=== PATIENT | female | born 1995 | race Caucasian/White ===

== ENCOUNTER 2022-06-12 07:44 | Emergency (ER) | payer OTHER, SELFPAY ==
--- NOTE | ~2022-06-12 | XR_ITS ---
EXAMINATION: XR chest 2V DATE: 06/12/2022 08:52 INDICATION: Cough and fever. TECHNIQUE: Frontal and lateral views of the chest were obtained. COMPARISON: None. FINDINGS: There is no pneumonia, pleural effusion, pneumothorax. The heart size is normal. There is m ild chronic anterior wedging of vertebral bodies at thoracolumbar junction. IMPRESSION: 1. No acute cardiopulmonary disease. Reviewed, dictated and finalized at location A. OUNT CLERK
--- NOTE | 2022-06-12 07:47 | ED.URI ---
HPI - URI/Sore Throat General Chief Complaint: Upper Respiratory Infection Stated Complaint: fever, cough, weakness, nausea, dizzy Time Seen by Provider: 06/12/22 07:45 Source: patient and RN notes reviewed Mode of arrival: ambulatory Limitations: no limitations History of Present Illness MD elicited complaint: fever and cough Onset (ago): week(s) (1) Consistency: constant Severity: moderate Description of mucous: clear Able to tolerate fluids by mouth: Yes Exacerbating factors: nothing Relieving factors: nothing Context: sick contacts and other(s) with similar symptoms Associated symptoms: fever (101), chills, myalgias and cough Treatments prior to arrival: acetaminophen and cold medicine Related Data Home Medications Medication Instructions Recorded Confirmed No Home Medications 06/12/22 06/12/22 Allergies Allergy/AdvReac Type Severity Reaction Status Date / Time No Known Allergies Allergy Verified 06/12/22 08:22 [facility] Past Medical History Medical History (Updated 06/12/22 @ 09:54 by Karel Sheridan MD) No active medical problems Surgical History Surgical History (Updated 06/12/22 @ 08:14 by Karel Sheridan MD) Hx of tonsillectomy Social History Social History (Updated 06/12/22 @ 08:14 by Karel Sheridan MD) Smoking packs per day: 1 Smoking cigarettes per day: 20.0 Smoking status: Current every day smoker Tobacco type: cigarettes Alcohol intake: never Substance use: never Exam Const: General: healthy appearing, no acute distress and alert Nutritional Appearance: well nourished and obese morbidly obese Orientation/consciousness: patient oriented x3 Limitations: no limitations Other: female nurse in room during examination. HENMT: Head: normal to inspection Ears: external ears normal Eyes: Conjunctivae: conjunctivae normal Pupils: Equal, round and reactive pupils present EOM: EOMs intact bilaterally Neck: Neck: normal visual inspection Resp: Effort & Inspection: normal respiratory effort Auscultation: clear to auscultation bilaterally Cardio: Rate: regular rate Rhythm: regular rhythm GI: GI Palp: Yes Soft to palpation and No Tenderness to palpation present (GI) Auscultation: normal bowel sounds Back/Spine/Pelvis: Cervical Spine: cervical ROM normal Thoracic/Lumbar Spine: thoraco-lumbar ROM normal Skin: General skin exam: normal color Rashes: no rashes Neuro: General: patient oriented x3, moves all extremities, no focal motor deficits and CN's II-XI intact bilaterally Speech: normal speech Gait exam (Neuro): Normal gait present Extrem: General: normal to inspection and no clubbing, cyanosis or edema Psych: Mental Status: mental status grossly normal Affect: normal affect Attitude: cooperative Course Vital Signs Vital signs: Vital Signs Temperature 36.9 C 06/12/22 07:56 Pulse Rate 104 H 06/12/22 07:56 Respiratory Rate 18 06/12/22 07:56 Blood Pressure 134/83 06/12/22 07:56 Pulse Oximetry 95 06/12/22 07:56 Oxygen Delivery Room Air 06/12/22 07:56 Temperature 36.9 C 06/12/22 07:56 Pulse Rate 104 H 06/12/22 07:56 Respiratory Rate 18 06/12/22 07:56 Blood Pressure 134/83 06/12/22 07:56 Pulse Oximetry 95 06/12/22 07:56 Oxygen Delivery Room Air 06/12/22 07:56 MDM - URI/Sore Throat MDM Narrative Medical decision making narrative: Patient has symptoms of COVID or influenza or other viral upper respiratory infection. Since she had symptoms for 1 week and some mild rhonchi I decided do chest x-ray which showed no evidence of pneumonia. I explained to patient that she is out of the treatment. For using Tamiflu. I recommended [id number] cough cold medication to treat symptoms. Differential Diagnosis Differential diagnosis: Likely upper respiratory infection, viral infection, influenza and other ( COVID or pneumonia.) Lab Data Attestation: I reviewed the patient's lab results. Labs: Lab Results 12
[2022-06-12 07:56] VITALS: BP 134/83; PULSE 104; RESP 18; TEMP 36.9; O2SAT 95
[2022-06-12 09:11] LABS: Influenza A QL RT-PCR Positive (Negative); Influenza B QL RT-PCR Negative (Negative); SARS-CoV-2 RNA PCR Negative (Negative)
[2022-06-12 09:56] VITALS: BP 137/61; PULSE 86; RESP 18; TEMP 36.7; O2SAT 99
== END 2022-06-12 10:12 | disposition home or self-care (01) ==
PROVIDERS: Emergency Provider Emergency Medicine; PCP Registered Nurse
DX: J11.1 Influenza due to unidentified influenza virus with other respiratory manifestations (principal); Z20.822 Contact with and (suspected) exposure to COVID-19
CPT/HCPCS: 71046; 87502; 99283; U0003; U0005

== ENCOUNTER 2022-07-19 10:08 | Outpatient (CLI) | payer OTHER, SELFPAY ==
--- NOTE | ~2022-07-19 | XR_ITS ---
XR thoracic spine 3V DATE: 07/19/2022 10:37 INDICATION: Low back pain, lower thoracic back pain TECHNIQUE: AP, lateral, swimmer views COMPARISON: None FINDINGS: Normal alignment of the thoracic spine. Thoracic pedicles are intact. There is minimal dege nerative spurring in the lower thoracic spine. Minimal anterior wedging of several lower thoracic vertebral bodies is noted, likely chronic. IMPRESSION: Mild degenerative change Reviewed, dictated and finalized at location L. FIELD TESTER IMPRESSION: Mild degenerative change
--- NOTE | ~2022-07-19 | XR_ITS ---
XR lumbar spine 2-3V DATE: 07/19/2022 10:37 INDICATION: Low back pain, lower thoracic back pain for 5 days TECHNIQUE: AP, lateral, coned lateral lumbosacral views COMPARISON: None FINDINGS: Normal alignment of the lumbar vertebrae. No fracture or bone destruction or spondylolisthe sis. Lumbar and lumbosacral interspaces are well preserved. Pedicles are intact. Sacroiliac joints ap pear normal. IMPRESSION: Negative Reviewed, dictated and finalized at location L. MILL OPERATOR IMPRESSION: Negative
== END 2022-07-19 10:09 | disposition home or self-care (01) ==
LOC: CHSIMG 10:12
PROVIDERS: PCP Registered Nurse; Visit Provider Registered Nurse
DX: M54.50 Low back pain, unspecified (principal); M54.6 Pain in thoracic spine
CPT/HCPCS: 72072; 72100

== ENCOUNTER 2022-10-17 16:53 | Outpatient (CLI) | payer OTHER, SELFPAY ==
--- NOTE | ~2022-10-17 | XR_ITS ---
XR wrist RT min 3V 10/17/2022 17:17 INDICATION: Right wrist pain PROCEDURE: 4 views right wrist COMPARISON: No prior studies for comparison. FINDINGS: Fracture, dislocation or subluxation is not identified. The soft tissues appear within norm al limits. No foreign bodies are identified. IMPRESSION: 1: NO ACUTE BONE OR JOINT ABNORMALITY IDENTIFIED. Reviewed, dictated and finalized at location A.
== END 2022-10-17 16:54 | disposition home or self-care (01) ==
LOC: CHSIMG 16:55
PROVIDERS: PCP Registered Nurse; Visit Provider Family Medicine
DX: M25.531 Pain in right wrist (principal)
CPT/HCPCS: 73110

== ENCOUNTER 2023-10-02 04:54 | Emergency (ER) | payer OTHER, SELFPAY ==
--- NOTE | ~2023-10-02 | XR_ITS ---
EXAMINATION: XR chest 1V portable DATE: 10/02/2023 05:50 INDICATION: Upper respiratory infection. TECHNIQUE: A single frontal view of the chest was obtained. COMPARISON: None. FINDINGS: There is no pneumonia, pleural effusion, or pneumothorax. The heart size is normal. IMPRESSION: 1. No acute cardiopulmonary disease. Reviewed, dictated and finalized at location A.
[2023-10-02 04:58] VITALS: BP 130/77; PULSE 94; RESP 20; TEMP 36.8; O2SAT 94
[2023-10-02 05:56] LABS: SARS-CoV-2 RNA PCR Negative (Negative)
[2023-10-02 05:58] LABS: Influenza A QL RT-PCR Negative (Negative); Influenza B QL RT-PCR Negative (Negative); RSV RNA, RT-PCR Negative (Negative)
--- NOTE | 2023-10-02 06:11 | ED.URI ---
HPI - URI/Sore Throat General Chief Complaint: Upper Respiratory Infection Stated Complaint: upper respiratory Source: patient Mode of arrival: ambulatory Limitations: no limitations History of Present Illness HPI Narrative: patient is a 27-year-old female with a cough and chest congestion for 2 days. MD elicited complaint: cough Onset (ago): day(s) (2) Consistency: constant Severity: moderate Pain scale (0-10): 5 Description of mucous: clear Able to tolerate fluids by mouth: Yes Exacerbating factors: nothing Relieving factors: nothing Associated symptoms: other ( Patient has chest she coughs only) Treatments prior to arrival: none Related Data Allergies Allergy/AdvReac Type Severity Reaction Status Date / Time No Known Allergies Allergy Verified 06/12/22 08:22 Review of Systems Review of Systems: All systems reviewed & are unremarkable except as noted in HPI and below Constitutional: Constitutional: Reports no additional constitutional complaints Eyes: Eyes: Reports no additional eye complaints ENT: Reports system reviewed and no additional complaints, except as documented Cardiovascular: Cardiovascular: Reports no additional cardiovascular complaints Respiratory: Respiratory: Reports no additional respiratory complaints Gastrointestinal: Gastrointestinal: Reports no additional gastrointestinal complaints Genitourinary: Genitourinary: Reports no additional female genitourinary complaints Musculoskeletal: Musculoskeletal: Reports no additional musculoskeletal complaints Integumentary/Breasts: Skin/Breast: Reports system reviewed and no additional complaints, except as docu Neurologic: Reports system reviewed and no additional complaints, except as documented Psychiatric: Psychiatric: Reports no additional psychiatric complaints Endocrine: Endocrine: Reports no additional endocrine complaints Hematologic/Lymphatic: Hematologic/Lymphatic: Reports no additional hematologic/lymphatic complaints Allergic/Immunologic: Allergic/Immunologic: Reports no additional allergic/immunologic complaints [facility] Past Medical History Medical History No active medical problems Surgical History Surgical History Hx of tonsillectomy Social History Social History Smoking packs per day: 1 Smoking cigarettes per day: 20.0 Smoking status: Current every day smoker Tobacco type: cigarettes Alcohol intake: never Substance use: never Exam Const: General: healthy appearing Nutritional Appearance: well nourished Orientation/consciousness: patient oriented x3 HENMT: Head: normal to inspection Ears: external ears normal Face/Nose/Sinus: Normal external nose present Eyes: Conjunctivae: conjunctivae normal Pupils: Equal, round and reactive pupils present EOM: EOMs intact bilaterally Neck: Neck: normal visual inspection Chest: Chest palpation & inspection: normal inspection of the chest Resp: Effort & Inspection: normal respiratory effort and not labored Auscultation: clear to auscultation bilaterally, no crackles and rhonchi lower bilaterally Cardio: Rate: regular rate Rhythm: regular rhythm Heart sounds: no murmurs GI: Inspection: non-distended GI Palp: Yes Soft to palpation and No Tenderness to palpation present (GI) Auscultation: normal bowel sounds : General: Yes bladder normal to palpation Back/Spine/Pelvis: Back: no CVA tenderness Skin: General skin exam: normal color Rashes: no rashes Wounds: no wounds Neuro: General: patient oriented x3 Cranial nerves: Yes Nystagmus not present Speech: normal speech Extrem: General: normal to inspection Psych: Mental Status: mental status grossly normal Affect: normal affect Attitude: cooperative Course Vital Signs Vital signs: Vital Signs Oxygen Delivery Room Air 04
== END 2023-10-02 06:25 | disposition home or self-care (01) ==
PROVIDERS: Emergency Provider Emergency Medicine; PCP Physician Assistant
DX: J40 Bronchitis, not specified as acute or chronic (principal); F17.210 Nicotine dependence, cigarettes, uncomplicated; Z20.822 Contact with and (suspected) exposure to COVID-19
CPT/HCPCS: 71045; 87637; 99283

== ENCOUNTER 2023-12-19 20:34 | Emergency (ER) | payer OTHER, SELFPAY ==
[2023-12-19 20:34] VITALS: BP 148/92; PULSE 93; RESP 18; TEMP 36.8; O2SAT 98
--- NOTE | 2023-12-19 20:52 | ED.GENADULT ---
HPI - General Adult General Chief complaint: Dental/Oral Stated complaint: R Ear Pain Time Seen by Provider: 12/19/23 20:46 History of Present Illness HPI narrative: the patient is a 28-year-old woman with sudden onset of right facial pain yesterday. She so a provider today, was diagnosed with dental caries and was treated with amoxicillin prescription. She has tried Aleve ibuprofen Tylenol and naproxen for pain control but still has significant pain in the right aspect of her face at her teeth radiating to the right ear. No drainage from the right ear. No hearing loss. No sick contacts. No fevers or chills. She does have the Nexplanon implant contraceptive. Last menstrual period unknown. No other complaints. Related Data Allergies Allergy/AdvReac Type Severity Reaction Status Date / Time No Known Allergies Allergy Verified 12/19/23 20:50 Review of Systems Review of Systems: All systems reviewed & are unremarkable except as noted in HPI and below Constitutional: Constitutional: Denies chills, Denies excessive sweating, Denies fatigue, Denies fever(s), Denies headache(s) and Denies weakness Eyes: Eyes: Denies change in vision and Denies photophobia ENT: Denies dysphagia, Denies dizziness, Denies headache(s), Denies lip swelling, Denies nasal congestion, Denies sore throat and Denies tongue swelling Comments: Positive for right facial pain likely dental related Cardiovascular: Cardiovascular: Denies chest pain, Denies syncope, Denies rapid heart rate and Denies dyspnea Respiratory: Respiratory: Denies cough, Denies dyspnea and Denies wheezing Gastrointestinal: Gastrointestinal: Denies abdominal pain, Denies constipation, Denies dysphagia, Denies diarrhea, Denies nausea and Denies vomiting Genitourinary: Genitourinary: Denies hematuria, Denies urinary frequency, Denies dysuria and Denies urinary urgency Musculoskeletal: Musculoskeletal: Denies back pain, Denies myalgias, Denies arthralgias, Denies joint swelling and Denies numbness Integumentary/Breasts: Skin/Breast: Denies pruritus, Denies erythema and Denies rash Neurologic: Denies confusion, Denies dizziness, Denies syncope, Denies headache(s), Denies focal weakness, Denies numbness and Denies weakness Psychiatric: Psychiatric: Denies anxiety and Denies confusion Endocrine: Endocrine: Denies excessive sweating and Denies fatigue Hematologic/Lymphatic: Hematologic/Lymphatic: Denies easy bleeding and Denies easy bruising Allergic/Immunologic: Allergic/Immunologic: Denies lip swelling, Denies tongue swelling and Denies wheezing PMFSH Past Medical History Medical History No active medical problems Surgical History Surgical History Hx of tonsillectomy Social History Social History Smoking packs per day: 1 Smoking cigarettes per day: 20.0 Smoking status: Current every day smoker Tobacco type: cigarettes Alcohol intake: never Substance use: never Exam Const: General: healthy appearing, no acute distress, alert and well nourished Nutritional Appearance: well nourished Orientation/consciousness: patient oriented x3 Limitations: no limitations Other: obese HENMT: Head: normal to inspection Ears: external ears normal, TM's normal bilaterally and EAC's normal Face/Nose/Sinus: normal facial exam Face and sinus: normal facial exam Mouth: Yes Normal oral and palatal mucosa present, Yes lip normal and Yes moist mucous membranes Teeth and gingiva: abnormal tooth and associated gingiva ( significant dental caries noted; tenderness in R lower posterior molar) Throat: posterior oropharynx normal Other: multiple teeth extracted already. Remaining teeth have significant caries. Eyes: Conjunctivae: conjunctivae normal Pupils: Equal, round and reactive pupils present EOM: EO
[2023-12-19] MEDS: KETOROLAC (*BKC) 60 MG/2 ML VIAL IM (21:02)
== END 2023-12-19 21:19 | disposition home or self-care (01) ==
LOC: CHSED 21:05
PROVIDERS: Emergency Provider Emergency Medicine; PCP Physician Assistant
DX: K02.9 Dental caries, unspecified (principal); F17.210 Nicotine dependence, cigarettes, uncomplicated
CPT/HCPCS: 96372; 99283; J1885

== ENCOUNTER 2024-08-06 08:57 | Emergency (ER) | payer OTHER, SELFPAY ==
[2024-08-06 08:59] VITALS: BP 142/83; PULSE 85; RESP 18; TEMP 36.7; O2SAT 96
[2024-08-06 09:00] VITALS: O2SAT 100
--- NOTE | 2024-08-06 09:00 | ED_ITS ---
HPI - URI/Sore Throat General Chief Complaint: Upper Respiratory Infection Stated Complaint: uri Time Seen by Provider: 08/06/24 09:00 Source: patient Mode of arrival: ambulatory Limitations: no limitations History of Present Illness HPI Narrative: patient is a 28-year-old female with cough and congestion for the past 2 days. She works at a [employer] and lots of exposure to influenza and RSV. MD elicited complaint: fever, cough, sore throat, rhinorrhea and nasal congestion Pertinent past history: other ( Negative) Onset (ago): day(s) (2) Consistency: constant Severity: moderate Pain scale (0-10): 1 Description of mucous: clear Able to tolerate fluids by mouth: Yes Exacerbating factors: nothing Relieving factors: nothing Context: sick contacts and other(s) with similar symptoms Associated symptoms: fever, chills, myalgias, rhinorrhea, nasal congestion, sore throat, cough and ear pain Treatments prior to arrival: none Related Data Allergies Allergy/AdvReac Type Severity Reaction Status Date / Time No Known Allergies Allergy Verified 12/19/23 20:50 Review of Systems Review of Systems: All systems reviewed & are unremarkable except as noted in HPI and below Constitutional: Constitutional: Reports no additional constitutional complaints Eyes: Eyes: Reports no additional eye complaints ENT: Reports system reviewed and no additional complaints, except as documented Cardiovascular: Cardiovascular: Reports no additional cardiovascular complaints Respiratory: Respiratory: Reports no additional respiratory complaints Gastrointestinal: Gastrointestinal: Reports no additional gastrointestinal complaints Genitourinary: Genitourinary: Reports no additional female genitourinary complaints Musculoskeletal: Musculoskeletal: Reports no additional musculoskeletal complaints Integumentary/Breasts: Skin/Breast: Reports system reviewed and no additional complaints, except as docu Neurologic: Reports system reviewed and no additional complaints, except as documented Psychiatric: Psychiatric: Reports no additional psychiatric complaints Endocrine: Endocrine: Reports no additional endocrine complaints Hematologic/Lymphatic: Hematologic/Lymphatic: Reports no additional hematologic/lymphatic complaints Allergic/Immunologic: Allergic/Immunologic: Reports no additional allergic/immunologic complaints PMFSH Past Medical History Medical History No active medical problems Surgical History Surgical History Hx of tonsillectomy Social History Social History Smoking packs per day: 1 Smoking cigarettes per day: 20.0 Smoking status: Current every day smoker Tobacco type: cigarettes Alcohol intake: never Substance use: never Exam Const: General: ill appearing Nutritional Appearance: well nourished Orientation/consciousness: patient oriented x3 Limitations: no limitations HENMT: Head: normal to inspection Ears: external ears normal Face/Nose/Sinus: Normal external nose present Eyes: Conjunctivae: conjunctivae normal Pupils: Equal, round and reactive pupils present EOM: EOMs intact bilaterally Neck: Neck: normal visual inspection Chest: Chest palpation & inspection: normal inspection of the chest Resp: Effort & Inspection: normal respiratory effort and not labored Auscultation: clear to auscultation bilaterally and no crackles Cardio: Rate: regular rate Rhythm: regular rhythm Heart sounds: no murmurs GI: Inspection: non-distended GI Palp: Yes Soft to palpation, No Tenderness to palpation present (GI) and No Guarding due to palpation present (GI) Au scultation: normal bowel sounds and bowel sounds present Rectal Exam: normal sphincter tone and No Abnormal stool present : General: Yes bladder normal to palpation Back/Spine/Pelvis: Back: no CVA tenderness Skin: General skin exam: normal color Rashes: no rashes Wounds: no wounds Neuro: General: patient oriented x3 Cranial nerves: Yes Nystagmus not present Speech: normal speech Gait exam (Neuro): Normal gait present Extrem: General: normal to inspection, no clubbing, cyanosis or edema and no pedal edema Psych: Mental Status: mental status grossly normal Affect: normal affect and No Anxious affect present Attitude: cooperative Course Vital Signs Vital signs: Vital Signs Temperature 36.7 C 08/06/24 08:59 Pulse Rate 85 08/06/24 08:59 Respiratory Rate 18 08/06/24 08:59 Blood Pressure 142/83 H 08/06/24 08:59 Pulse Oximetry 96 08/06/24 08:59 Oxygen Delivery Room Air 08/06/24 08:59 Temperature 36.7 C 08/06/24 08:59 Pulse Rate 85 08/06/24 08:59 Respiratory Rate 18 08/06/24 08:59 Blood Pressure 142/83 H 08/06/24 08:59 Pulse Oximetry 100 08/06/24 09:00 Oxygen Delivery Room Air 08/06/24 09:00 MDM - URI/Sore Throat MDM Narrative Medical decision making narrative: patient is a 28-year-old female with viral syndrome complaints and exposure to influenza and RSV. We will do a COVID viral panel at this time. Lab Data Attestation: I reviewed the patient's lab results. Labs: Lab Results 08/06/24 Range/Units 09:00 Influenza A (RT-PCR) Positive A (Negative) Influenza B (RT-PCR) Negative (Negative) RSV (RT-PCR) Negative (Negative) SARS-CoV-2 RNA (RT-PCR) Negative (Negative) Group A Strep (PCR) Not detected (Negative) Discharge Plan Discharge Clinical Impression: Influenza A Patient Disposition: Home, Self-Care Condition: Stable Instructions: Influenza (ED) Patient Language: Frisian Prescriptions: New oseltamivir [Tamiflu] 75 mg capsule 75 mg PO BID 5 Days Qty: 10 0RF No Action azithromycin 250 mg tablet See Rx Instructions .ROUTE .COMPLEX Qty: 6 0RF Rx Instructions: For 250 mg dose pack: take 500 mg today (day 1), then 250 mg for 4 days (days 2-5) albuterol sulfate 90 mcg/actuation HFA aerosol inhaler 1 inh inhalation Q6H PRN (Reason: shortness of breath or wheezing) Qty: 6.7 0RF hydrocodone-acetaminophen 5-325 mg tablet 1 tablet PO Q12H PRN (Reason: severe pain) Qty: 10 0RF tramadol 50 mg tablet 50 mg PO Q12H PRN (Reason: moderate pain) Qty: 14 0RF Follow-up/Referrals: Arsh,KENNEDY Mckeon [Primary Care Provider] - Stand Alone Forms: Work/School Release IP Time of Disposition: 09:55
--- NOTE | 2024-08-06 09:08 | PC.NURSE ---
covid culture sent to lab
--- OUTSIDE RECORDS SUMMARY | 2024-08-06 09:19 | XMS_ITS ---
Author Organization Unknown Address [address] [place] [phone] Phone Care Team Providers Care Supervisor Shuttle Veneering Name Role Phone LORENA Dasilva Attending Unavailable ALEXA ESPINO CRNA Unavailable STEPHANIE BAEZ Primary Unavailable Results TEST URINE - Colle ct Date/Time: 05/17/2024 07:50 [facility] ID: [id number] [place] [address], [id number] LOINC: Test Value Unit Reference Range Code Code System Flag URINE PREG NEGATIVE Social History Type Status Start Date End Date Code Code Syst em Smoking History Unknown if ever smoked [address] Sex Female Vital Signs Vital Sign Value Unit [place] Value [place] Unit Date/Time Recent/Initial? Code Code System Body Mass Index 49.60 kg/m2 05/17/2024 08:04 Most Recent 78951 -5 LOINC Body Mass Index 46.06 kg/m2 05/07/2024 13:24 Initial 70720 -5 LOINC Systolic Blood Pressure 131 mm[Hg] 05/17/2024 08:05 Initial 8480- 6 LOINC Diastolic Blood Pressure 67 mm[Hg] 05/17/2024 08:05 Initial 8462- 4 LOINC Body Surface Area 2.38 m2 05/17/2024 08:04 Most Recent 3140- 1 LOINC Body Surface Area 2.29 m2 05/07/2024 13:24 Initial 3140- 1 LOINC Height 160.020 0 cm 63.00 in 05/17/2024 08:04 Most Recent 8302- 2 LOINC Height 160.020 0 cm 63.00 in 05/07/2024 13:24 Initial 8302- 2 LOINC O2 Saturation 97 % 2023 08:05 Initial 85442 -5 LOINC Pulse 84.0 /min 05/17/2024 08:05 Initial 8867- 4 LOINC Respiration 16 /min 05/17/20 08:05 Initial 9279- 1 LOINC Temperature 36.5 Dana 97.7 F 05/17/20 08:05 Initial 8310- 5 LOINC Weight 127.01 kg 280.00 lbs 05/17/2024 08:04 Most Recent 88382 -7 LOINC Weight 117.93 kg 260.00 lbs 05/07/2024 13:24 Initial 97595 -7 LOINC Medications Medication Start Date End Date Route Frequency Dose Code Code System Medication Instructions Home Meds Omeprazole 40MG Oral Capsule, Delayed Release 02/15/2024 05/17/2024 ORAL ONCE A DAY 40 MILLIGRAMS [id number] RxNorm TAKE 40 MILLIGRAMS ORAL ONCE A DAY metFORMIN HCl 500MG Oral Tablet 05/17/2024 Unknown ORAL ONCE A DAY 500 MILLIGRAMS 546885 RxNorm TAKE 500 MILLIGRAMS ORAL ONCE A DAY Omeprazole 40MG Oral Capsule, Delayed Release 05/17/2024 Unknown BY MOUTH TWICE A DAY BEFORE MEALS 1 CAPSULE [id number] RxNorm TAKE 1 CAPSULE BY MOUTH TWICE A DAY BEFORE MEALS Hospital Discharge Instructions Should you have any questions prior to discharge, please contact a member of your healthcare team. If you have left the hospital and have any questions, please contact your primary care physician. Reason For Referral No Data Found Procedures Procedure Name Date Status Code Code Syste m Extraction of wisdom tooth completed 44958273 SNOMEDCT Esophagogastroduodenoscopy, flexible, transoral; with transendoscopic ball 05/17/2024 completed 29613 CPT Anesthesia for upper gastroi ntestinal endoscopic procedures, endoscope int 05/17/2024 completed 46529 CPT Allergies and Adverse Reactions Allergy Substance Reaction Severity Start Date Concern Status Co de Code System No Known Drug Allergies Active 751524164 SNOMED-CT Plan of Treatment EGD 05/17/2024 EGD 02/15/2024 Encounters Encounter Diagnosis Start Date Code Code Sys tem Dysphagia, unspecified 05/17/2024 SNOME D-CT Personal Care Team Section Performer Name Performer Role Active Date Inactive Da te
--- OUTSIDE RECORDS SUMMARY | 2024-08-06 09:19 | XMS_ITS ---
Author Organization Unknown Address [id number] [place] [phone] Phone Care Team Providers Care Key Worker Name Role Phone LORENA Dasilva Attending Unavailable CEFERINO HERNANDEZ PUBLIC POLICY PROFESSOR Unavailable STEPHANIE BAEZ Primary Unavailable Results TEST URINE - Colle ct Date/Time: 02/15/2024 07:35 [facility] ID: [id number] [place], [place], [id number] LOINC: Test Value Unit Reference Range Code Code System Flag URINE PREG NEGATIVE Social History Type Status Start Date End Date Code Code Syst em Smoking History Unknown if ever smoked [address] Sex Female Vital Signs Vital Sign Value Unit [place] Value [place] Unit Date/Time Recent/Initial? Code Code System Body Mass Index 47.83 kg/m2 02/15/2024 08:04 Most Recent 72238 -5 LOINC Body Mass Index 47.83 kg/m2 02/05/2024 14:27 Initial 27060 -5 LOINC Systolic Blood Pressure 139 mm[Hg] 02/15/2024 08:04 Initial 8480- 6 LOINC Diastolic Blood Pressure 63 mm[Hg] 02/15/2024 08:04 Initial 8462- 4 LOINC Body Surface Area 2.33 m2 02/15/2024 08:04 Most Recent 3140- 1 LOINC Body Surface Area 2.33 m2 02/05/2024 14:27 Initial 3140- 1 LOINC Height 160.020 0 cm 63.00 in 02/15/2024 08:04 Most Recent 8302- 2 LOINC Height 160.020 0 cm 63.00 in 02/05/2024 14:27 Initial 8302- 2 LOINC O2 Saturation 96 % 2023 08:04 Initial 39013 -5 LOINC Pulse 80.0 /min 02/15/2024 08:04 Initial 8867- 4 LOINC Respiration 20 /min 02/15/20 08:04 Initial 9279- 1 LOINC Temperature 36.4 Dana 97.5 F 02/15/20 08:04 Initial 8310- 5 LOINC Weight 122.47 kg 270.00 lbs 02/15/2024 08:04 Most Recent 36160 -7 LOINC Weight 122.47 kg 270.00 lbs 02/05/2024 14:27 Initial 54932 -7 LOINC Medications Medication Start Date End Date Route Frequency Dose Code Code System Medication Instructions Home Meds Omeprazole 40MG Oral Capsule, Delayed Release 02/15/2024 05/17/2024 ORAL ONCE A DAY 40 MILLIGRAMS 20020811 RxNorm TAKE 40 MILLIGRAMS ORAL ONCE A DAY metFORMIN HCl 500MG Oral Tablet 05/17/2024 Unknown ORAL ONCE A DAY 500 MILLIGRAMS 553896 RxNorm TAKE 500 MILLIGRAMS ORAL ONCE A [...] Name Date Status Code Code Syste m History of tonsillectomy completed 286709134 SNOMEDCT Esophagogastroduodenoscopy, flexible, transoral; with transendoscopic ball 02/15/2024 completed 41624 CPT History of adenoidectomy completed 344083754 SNOMEDCT Anesthesia for upper gastroi ntestinal endoscopic procedures, endoscope int 02/15/2024 completed 15045 CPT Allergies and Adverse Reactions Allergy Substance Reaction Severity Start Date Concern Status Co de Code System No Known Drug Allergies Active 935415353 SNOMED-CT Plan of Treatment EGD 05/17/2024 EGD 02/15/2024 Encounters Encounter Diagnosis Start Date Code Code Sys tem Dysphagia, unspecified 02/15/2024 SNOME D-CT Personal Care Team Section Performer Name Performer Role Active Date Inactive Da te
--- OUTSIDE RECORDS SUMMARY | 2024-08-06 09:19 | XMS_ITS ---
Author Organization Unknown Address [address] [place] [phone] Phone Care Team Providers Care 3D Modeler Name Role Phone CESAR PRESSLEY Attending Unavailable STEPHANIE BAEZ Primary Unavailable Results WRIST 3V LEFT - Completed: 0 08/16/2023 10:19 LOINC: EXAM DESCRIPTION: WRIST 3V LEFT REASON FOR STUDY: Cyst on left wrist. No pain. Duration: chronic TECHNIQUE: 3 radiographic view(s) of the left wrist . COMPARISON: None. FINDINGS: BONES/JOINTS: There is no acute fracture, malalignment or osseous abnormality. The joint spaces are normal. SOFT TISSUES: Within normal limits. IMPRESSION: No acute osseous abnormality. THIS IS AN ELECTRONICALLY VERIFIED FINAL REPORT 08/16/2023 8:09 PM - Electronically signed by Uli Cancino M.D., D.O. Uli Cancino M.D., D.O. MW: MARQUITA Report ID: [id number] Reading Location: [id number] Social History Type Status Start Date End Date Code Code Syst em Smoking History Unknown if ever smoked [address] Sex Female Medications Medication Start Date End Date Route Frequency Dose Code Code System Medication Instructions Home Meds Omeprazole 40MG Oral Capsule, Delayed Release 02/15/2024 05/17/2024 ORAL ONCE A DAY 40 MILLIGRAMS 20020811 RxNorm TAKE 40 MILLIGRAMS ORAL ONCE A DAY metFORMIN HCl 500MG Oral Tablet 05/17/2024 Unknown ORAL ONCE A DAY 500 MILLIGRAMS 877610 RxNorm TAKE 500 MILLIGRAMS ORAL ONCE A [...] physician. Reason For Referral No Data Found Allergies and Adverse Reactions Allergy Substance Reaction Severity Start Date Concern Status Co de Code System No Known Drug Allergies Active 551739443 SNOMED-CT Plan of Treatment EGD 05/17/2024 EGD 02/15/2024 Encounters Encounter Diagnosis Start Date Code Code Sys tem Ganglion of wrist 08/16/2023976396397 SNOMED-CT Personal Care Team Section Performer Name Performer Role Active Date Inactive Da te Imaging Narrative Notes
--- OUTSIDE RECORDS SUMMARY | 2024-08-06 09:20 | XMS_ITS | Clinical Summary ---
Author Organization [facility] Address [address] [place] [address]. [place] [address] [place] [address] Care Team Providers Care Bander Hand Name Role Phone Judit Walsh MD Primary Care Provider [phone] Allergies No known active allergies Medications No known medications Active Problems Problem Noted Date Diagnosed Date Encounter for induction of labor ([facility]) 02/01 Social History Tobacco Use Types Packs/Day Years Used Date Smoking Tobacco: Every Day Cigarettes Smokeless Tobacco: Never Tobacco Cessation:Ready to Q uit: Not Asked; Counseling Given: Not Answered Alcohol Use Standard Drinks/Week Comments Not Currently 0 (1 standard drink = 0.6 oz pur e alcohol) Depression Answer Date Recor ded Last EPDS Total Score 0 02/03/2022 Last EPDS Self Harm Result Never 02/03 Comments No Sex and Gender Information Value Date Recorded Sex Assigned at Not on file 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 Gender Identity Not on file Sexual Orientation Not on file Last Filed Vital Signs Vital Sign Reading Time Taken Comments Blood Pressure 154/91 12/19/2023 12:05 AM CDT Pulse 87 12/19/2023 12:05 AM CDT Temperature 36.9 ??C (98.4 ??F) 12/19/2023 1 2:05 AM CDT Respiratory Rate 22 12/19/2023 12:0 5 AM CDT Oxygen Saturation 100% 12/19/2023 12: 05 AM CDT Inhaled Oxygen Concentration - - Weight 126.5 kg (278 lb 12.8 oz) 2023 12:05 AM CDT Height 160 cm (5' 3 ) 12/19/2023 12:05 AM CDT Body Mass Index 49.39 12/19/2023 12:05 AM CDT Plan of Treatment Health Maintenance Due Date Last Done Comments Annual Physical 2000 Pneumococcal Vaccine: Pediatrics (0 to 5 Years) and At-Risk Patients (6 to 64 Years) (1 of 2 - PCV) 10/23/2003 DTaP, Tdap and Td Vaccines (6 - Tdap) 2008 01/13/2003, 01/25/1999, 05/11/1998, Additional history exists HPV Vaccines (1 - 3-dose series) 2012 Cervical Cancer Screening Pap Smear (Age 21 to 29) Every 3 Years 11/21/2023 11/20/2020 Cervical Cancer Screening 11/21/2023 COVID-19 Vaccine ( season) 2024 06/29/2021, 05/26/2021 Influenza Adult (#1) 2024 11/20/2020 Hepatitis B Vaccines Completed 06/08/1998, 01/09/1998, 1997 Chlamydia Screening Females ages 16-24 Discontinued 11/20/2020 Hepatitis C Completed 01/11/2022 Meningococcal B Vaccine Aged Out No l onger eligible based on patient's age to complete this topic Meningococcal Vaccine Aged Out No julieta braxton eligible based on patient's age to complete this topic RSV Immunizations Under 20 Months Aged Out No longer eligible based on patient's age to complete this topic Procedures Procedure Name Priority Date/Time Associated Diagnosis Comments HEPATITIS C ANTIBODY Routine 01/11/2022 from Last 3 Months or Most Recently Relevant to Health Maintenance Results * HEPATITIS C ANTIBODY (01/11/2022) HEPATITIS C AB negative us Doc [facility] Final Result from Last 3 Months or Most Recently Relevant to Health Maintenance Insurance [place] Advance Directives * Full Code (Latest Code Status on File) Date Activated Date Inactivated Comments 02/01/2022 6:31 AM 02/03/2022 1:51 PM Care Teams Bander Hand Relationship Specialty Start Date End Date Judit Walsh MD [address] [place] [address] PCP - General FAMILY PRACTICE 01/17/22
--- OUTSIDE RECORDS SUMMARY | 2024-08-06 09:20 | XMS_ITS | Data Portability ---
Author Organization [facility], [facility] Address [address] [place] [address] Assessment No assessment recorded. Plan of Treatment Reminders Order Date Submit Date Provider Last Modified By Organization Details Last Modified Time Details Appointments None recorded. Lab None recorded. Referral None recorded. Procedures None recorded. Surgeries None recorded. Imaging XR, thoracic spine, 3 view 2020 [facility] (Radiology), [address], [place], [address], 15:51:07 Medication Orders Depo-Medrol 40 mg/mL suspension for injection 2020 Not available 14:35:53 dexamethaso ne sodium phosphate 4 mg/mL injection solution 2020 Not available 14:34:54 prednisone 20 mg tablet 2020 [facility], [address], [place], [address], 14:31:11 cyclobenzap rine 10 mg tablet 2020 [facility], [address], [place], [address], 14:31:11 Patient TargetsNo targets recorded. Patient Instructions Encounter Date Encounter Id Patient Instructions Last Modified By Organization Details Last Modified Time 04/13/2021 [id number] Quitting Tobacco : Care Instructions Not available 04/13/2021 14:23:41 Hospital Discharge Instructions Patient Instructions None recorded. Patient Goals None recorded. Results Created Date Observation Date Name Description Value Unit Range Abnormal Flag Note LastModifiedBy Organization Detail LastModifiedTime 04/13/20 XR Thora cic spine 3 Views [facility] [address] [place] [address] ____ ____ RADIOL OGY___ P ATIENT NAME: MICAELA MEREDITH PT ACC #: [id number] : 1995 AGE: 25 Y PT SEX:F TYPE: Admit/ Discha rge Date: / / - / / Orderi ng Phys: Tamika Sheridan edical Record #: [id number] X-ray Number : [id number] [address] [place] [address] Phone Number : [phone] xr spine thorac ic 3 views COMPLE TE: 02:53_ _EXAM: 3 view cervic al spine. HISTOR Y: Neck pain. COMPAR ROMÁN: None. FINDIN GS: AP, latera l, and odonto id views of the cervic al spine. There isnorm al curvat ure and alignm ent. The verteb ral height s are well mainta ined. There are no signif icant degene rative change s. Soft tissue s are normal . The lung apices are clear. IMPRES TRU: No acute abnorm alitie s. ADDEND UM: Please disreg may the above due to patien t. An incorr ect templa te wascho sen. EXAM: Thorac ic spine, three views. HISTOR Y: Back pain. COMPAR ROMÁN: None. FINDIN GS: AP, swimme r's view and latera l views of the thorac ic spine. There isnorm al curvat ure and alignm ent. The verteb ral height s are well mainta ined. There are no acute or healin g fractu res. There are no lytic or blasti c lesion s. The pedicl es are all intact . Soft tissue s are normal . IMPRES TRU: No acute abnorm alitie s. __INTE RPRETI NG RADIOL OGIST: Farhan christopher M.D. Not Available [facility] (Radiology) [address], [place], [address], Not Available 04/13/20 21 XR Thora cic spine 3 Views ELECTR ONICAL LY SIGNED BY: Farhan christopher M.D.Tr lorri ption Initia ls: JJB Transc riptio n Time: 19:59 Transc riptio n Date: Signed Date/T zuleyma: 19:59* UNS IGNED TRANSC RIPTIO NS ARE PRELIM INARY REPORT S AND DO NOTREP RESENT MEDICA L OR LEGAL DOCUME NTS. Not Available [facility] (Radiology) [address], [place], [address], Not Available 04/13/20 21 XR Thora cic spine 3 Views [facility] [address] [place] [address] ____ ____ RADIOL OGY___ P ATIENT NAME: MICAELA MEREDITH PT ACC #: [id number] : 1995 AGE: 25 Y PT SEX:F TYPE: Admit/ Discha rge Date: / / - / / Orderi laura Phys: Tamika Sheridan edical Record #: [id number] X-ray Number : [id number] Phone Number : [phone] xr spine thorac ic 3 views COMPLE TE: 02:53_ _EXAM: 3 view cervic al spine. HISTOR Y: Neck pain. COMPAR ROMÁN: None. FINDIN GS: AP, latera l, and odonto id views of the cervic al spine. There isnorm al curvat ure and alignm ent. The verteb ral height s are well mainta ined. There are no signif icant degene rative change s. Soft tissue s are normal . The lung apices are clear. IMPRES TRU: No acute abnorm alitie s. __INTE RPRETI NG RADIOL OGIST: Farhan christopher M.D.EL ECTRON ICALLY SIGNED BY: Farhan christopher M.D.Tr anscri ption Initia ls: JJB Transc riptio n Time: 14:46 Transc riptio n Date: Signed Date/T zuleyma: 14:46* UNS IGNED TRANSC RIPTIO NS ARE PRELIM INARY REPORT S AND DO NOTREP RESENT MEDICA L OR LEGAL DOCUME NTS. Not Available [facility] (Radiology) [address], [place], [address], Not Available Result Notes None recorded. Procedures Surgical History Date Name Laterality Status Provider Name and Address Organization Details Recorded Time Date of Last Pap Smear completed [facility] 04/13/2021 14:08:13 [place] Teeth Extraction completed [facility] 04/13/2021 14:07:43 Tonsillectomy/A denoidectomy completed Julia Jeff [place] - [facility] 04/13/2021 14:07:53 Imaging Results Imaging Date Name Status LastModified by Organiz ation Details LastModified Time 04/13/2021 XR Thoracic spine 3 Views active Not Available [facility] (Radiology) [address], [place], [address], Not Available 04/13/2021 XR Thoracic spine 3 Views active Not Available [facility] (Radiology) [address], [place], [place], [address], Not Available Procedure Notes None recorded. Medical Equipment None Reported. Allergies No known drug allergies Medications Name Sig Start Date Stop Date Status Note LastModified by Organization Details LastModified Time cyclobenza netta 10 mg tablet Take 1 tablet twice a day by oral route as needed. 2020 active Not Available Not Available Not Avai lable Depo-Medro l 40 mg/mL suspension for injection Take 1 mL every day by injectio n route. 2020 active Not Available Not Available Not Avai lable trazodone 50 mg tablet 04/13 completed pt states that she is not taking Not Available Not Available Not Available azithromyc in 250 mg tablet Take 2 tablets by mouth the first day and 1 tablet days 2-5. 04/13 completed Not Available Not Available Not Available prednisone 20 mg tablet Take 1 tablet twice a day by oral route for 10 days. 2020 active Not Available Not Available Not Avai lable metronidaz ole 500 mg tablet 04/13 completed pt states that she is not taking Not Available Not Available Not Available OneTouch Ultra Test strips USE one strip TO check blood glucose FOUR TIMES DAILY 04/13 completed Not Available Not Available Not Available oseltamivi r 75 mg capsule TAKE ONE CAPSULE BY MOUTH TWICE DAILY FOR 5 DAYS 04/13 completed pt states that she is not taking Not Available Not Available Not Available dexamethas one sodium phosphate 4 mg/mL injection solution Inject 1 mL every day by intramus cular route. 2020 active Not Available Not Available Not Avai lable hydroxyzin e HCl 10 mg tablet Take 1 tablet every day by oral route as needed. active Not Available Not Available No t Available Yair (28) 0.3 mg-30 mcg tablet TAKE ONE TABLET BY MOUTH DAILY 04/13 completed pt states that she is not taking Not Available Not Available Not Available OneTouch Ultra2 Meter USE TO check blood glucose FOUR TIMES DAILY 04/13 completed Not Available Not Available Not Available OneTouch Delica Plus Lancet 30 gauge USE TO check blood glucose FOUR TIMES DAILY 04/13 completed Not Available Not Available Not Available Vitals Date Recorded Oxygen saturation Oxygen saturation in Arterial blood by Pulse oximetry Heart rate Respiratory rate Body temperature Body weight Body mass index (BMI) Body height Systolic blood pressure Diastolic blood pressure Provider Name and Address Organization Details Last Updated DateTime 94 % 94 % 88 /min 16 /min 98.7 [degF] 035183. 98 g 46.9 kg/m2 160.02 cm 124 mm[Hg] 78 mm[Hg] Julia Jeff [facility] 14:10:56 Social History Question Answer Notes LastModified by Organizat ion Details LastModified Time Tobacco Smoking Status Current Every Day Smoker Julia Aguilar [facility] 04/13/2021 14:07:07 What Is Your Level Of Alcohol Consumption? None Information not available 04/13/2021 Are You Blind Or Do You Have Difficulty Seeing? No Information not available 04/13/2021 What Is Your Level Of Caffeine Consumption? Moderate Information not available 04/13/2021 What Is Your Code Status? 0 JOANN Information not available 05/19/2021 Have You Been To An Area Known To Be High Risk For COVID-19? No Information not available 04/13/2021 Are You Deaf Or Do You Have Serious Difficulty Hearing? No Information not available 04/13/2021 What Type Of Diet Are You Following? 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 Left Information not available 04/13/2021 What Was The Date Of Your Most Recent Tobacco Screening? 04/13/2021 Information not available 04/13/2021 How Many Children Do You Have? 1 Information not available 04/13/2021 What Is Your Relationship Status? Information not available 04/13/2021 Are You Passively Exposed To Smoke? Yes Information no t available 04/13/2021 Are There Any Smokers In Your House? Yes Information not available 04/13/2021 How Much Tobacco Do You Smoke? 1 PPD Information not available 04/13/2021 Do You Use Any Illicit Or Recreational Drugs? No Information not available 04/13/2021 How Many Years Have You Smoked Tobacco? 5 Information not available 04/13/2021 Do You Or Have You Ever Used Any Other Forms Of Tobacco Or Nicotine? No Information not available 04/13/2021 Sex: Unknown Functional Status Question Answer Note LastModified by Organizat ion Details LastModified Time Do you have difficulty walking or climbing stairs? No Information not available 04/13/2021 Do you have transportation difficulties? No Information not available 04/13/2021 Are you able to walk? YESWOREST Information not available 04/13/2021 Do you have difficulty doing errands alone? No Information not available 04/13/2021 Are you able to care for yourself? Yes Information not available 04/13/2021 Do you have difficulty dressing or bathing? No Information not available 04/13/2021 Mental Status Question Answer Note LastModified by Organization D etails LastModified Time Do you have difficulty concentrating, remembering or making decisions? No Information no t available 04/13/2021 Family History Relationship Description Onset Age of this Age Resolved Age Notes LastModified by Organization Details LastModified Time Father No current problems or disability Not available 04/13 14:05:59 Mother No current problems or disability Not available 04/13 14:05:59 Medical History Condition Response Anxiety Disorder Y Depression Y Gynecological History Statement/Question Response Date of Last Pap Smear 12/01/2020 Obstetrics History GPAL:G 1 P 1 0 0 0 Type Value Full Term 1 Total 1 Past Encounters Encounter ID Performer Location Encounter Start Date Encounter Closed Date Diagnosis/Indication Diagnosis SNOMED-CT Code Diagnosis ICD10 Code Diagnosis Note [id number] Emergency Room [address] [place] [id number] 04/03/2021 13:06:00 04/03/2021 14:10:00 [id number] LAB/RAD OP [facility] [address] [place] [id number] 04/13/2021 14:51:00 04/14/2021 00:59:00 Health Concerns Section Related Observation LastModified by Organization Detai ls LastModified Time None Recorded Concern Status LastModified by Organization Details LastModified Time None Recorded Advance Directives Directive None Recorded Payers Encounter Date Sequence Insurance Name Policy Number Policy Sheikh Covered Member ID Sheikh Member ID Guarantor Name 04/13/2021 1 [facility] (MEDICAID HMO) Micaela Shaw [id number] Micaela Shaw Notes Date Note Type Note Provider Name and Address Organization Details Recorded Time 04/13/2021 text/html Back PainReporte d bypatient.Location :thoracic; pain is not radiating Quality:dull;stiff ness Severity:same;mode rate (5-7) Duration:acute Onset/Timindays ago Context:atraumatic ; fall Alleviating Factors:rest Aggravating Factors:twisting; lying for long periods/ standing for long periods Associated Symptoms:no numbness of the legs/feetNotes:25 year old NEW pt presents today for follow up from [facility] ER 04/03/2021 due to falling and hurting her back. Pt reports that she is having burning sensation mid back both sides. pt was told to take IBU pt reports that IBU does not help with the pain. taking 800mg q 8hr Nelly Sheridan NP [address], [place], [address], [facility] 04/13/2021 14:29:19 OBGyn Episode No OBEpisode recorded.
[2024-08-06 09:38] LABS: Strep Group A RT-PCR NOT DETECTED (Negative)
[2024-08-06 09:47] LABS: SARS-CoV-2 RNA PCR Negative (Negative)
[2024-08-06 09:48] LABS: Influenza A QL RT-PCR Positive (Negative); Influenza B QL RT-PCR Negative (Negative); RSV RNA, RT-PCR Negative (Negative)
--- OUTSIDE RECORDS SUMMARY | 2024-08-06 10:10 | XMS_ITS ---
Author Organization Unknown Address [address] [place] [phone] Phone Care Team Providers Care Show Card Writer Name Role Phone CESAR PRESSLEY Attending Unavailable [...] Cancino M.D., D.O. MW: MARQUITA Report ID: [id number] Reading Location: [id number] Social History Type Status Start Date End Date Code Code Syst em Smoking History Unknown if ever smoked [address] Sex Female Medications Medication Start Date End Date Route Frequency Dose Code Code System Medication Instructions Home Meds Omeprazole 40MG Oral Capsule, Delayed Release 02/15/2024 05/17/2024 ORAL ONCE A DAY 40 MILLIGRAMS 20020811 RxNorm TAKE 40 MILLIGRAMS ORAL ONCE A DAY metFORMIN HCl 500MG Oral Tablet 05/17/2024 Unknown ORAL ONCE A DAY 500 MILLIGRAMS 280552 RxNorm TAKE 500 MILLIGRAMS ORAL ONCE A [...] Code System No Known Drug Allergies Active 170893244 SNOMED-CT Plan of Treatment EGD 05/17/2024 EGD 02/15/2024 Encounters Encounter Diagnosis Start Date Code Code Sys tem Ganglion of wrist 08/16/2023142120863 SNOMED-CT Personal Care Team Section Performer Name Performer Role Active Date Inactive Da te Imaging Narrative Notes
[2024-08-06 10:11] VITALS: BP 132/62; PULSE 82; RESP 16; TEMP 36.6; O2SAT 99
--- OUTSIDE RECORDS SUMMARY | 2024-08-06 10:11 | XMS_ITS | Clinical Summary ---
Author Organization [facility] Address [address] [place] [address]. 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 [place] [address] PCP - General FAMILY PRACTICE 01/17/22
--- OUTSIDE RECORDS SUMMARY | 2024-08-06 10:11 | XMS_ITS ---
Author Organization Unknown Address [address] [place] [phone] Phone Care Team Providers Care Pipe Smoking Machine Offbearer Name Role Phone LORENA Dasilva Attending Unavailable ALEXA ESPINO CRNA Unavailable STEPHANIE BAEZ Primary Unavailable Results TEST URINE - Colle ct Date/Time: 05/17/2024 07:50 [facility] ID: [id number] [place], [place], [id number] LOINC: Test Value Unit Reference Range Code Code System Flag URINE PREG NEGATIVE Social History Type Status Start Date End Date Code Code Syst em Smoking History Unknown if ever smoked [address] Sex Female Vital Signs Vital Sign Value Unit [place] [facility] [place] Unit Date/Time Recent/Initial? Code Code System Body Mass Index 49.60 kg/m2 05/17/2024 08:04 Most Recent 45060 -5 LOINC Body Mass Index 46.06 kg/m2 05/07/2024 13:24 Initial 20480 -5 LOINC Systolic Blood Pressure 131 mm[Hg] [...] O2 Saturation 97 % 2023 08:05 Initial 69547 -5 LOINC Pulse 84.0 /min 05/17/2024 08:05 Initial 8867- 4 LOINC Respiration 16 /min 05/17/20 08:05 Initial 9279- 1 LOINC Temperature 36.5 Dana 97.7 F 05/17/20 08:05 Initial 8310- 5 LOINC Weight 127.01 kg 280.00 lbs 05/17/2024 08:04 Most Recent 43698 -7 LOINC Weight 117.93 kg 260.00 lbs 05/07/2024 13:24 Initial 46684 -7 LOINC Medications Medication Start Date End Date Route Frequency Dose Code Code System Medication Instructions Home Meds Omeprazole 40MG Oral Capsule, Delayed Release 02/15/2024 05/17/2024 ORAL ONCE A DAY 40 MILLIGRAMS [id number] RxNorm TAKE 40 MILLIGRAMS ORAL ONCE A DAY metFORMIN HCl 500MG Oral Tablet 05/17/2024 Unknown ORAL ONCE A DAY 500 MILLIGRAMS 246012 RxNorm TAKE 500 MILLIGRAMS ORAL ONCE A [...] Syste m Extraction of wisdom tooth completed [id number] SNOMEDCT Esophagogastroduodenoscopy, flexible, transoral; with transendoscopic ball 05/17/2024 completed 44451 CPT Anesthesia for upper gastroi ntestinal endoscopic procedures, endoscope int 05/17/2024 completed 11860 CPT Allergies and Adverse Reactions Allergy Substance Reaction Severity Start Date Concern Status Co de Code System No Known Drug Allergies Active 325238979 SNOMED-CT Plan of Treatment EGD 05/17/2024 EGD 02/15/2024 Encounters Encounter Diagnosis Start Date Code Code Sys tem Dysphagia, unspecified 05/17/2024 SNOME D-CT Personal Care Team Section Performer Name Performer Role Active Date Inactive Lorenzo jacob
--- OUTSIDE RECORDS SUMMARY | 2024-08-06 10:11 | XMS_ITS ---
Author Organization Unknown Address [address] [place] [phone] Phone Care Team Providers Care Intermediate Accountant Name Role Phone LORENA Dasilva Attending Unavailable CEFERINO HERNANDEZ CRNA Unavailable STEPHANIE BAEZ Primary Unavailable Results TEST URINE - Colle ct Date/Time: 02/15/2024 07:35 [facility] ID: [id number] [place], [place], [id number] LOINC: Test Value Unit Reference Range Code Code System Flag URINE PREG NEGATIVE Social History Type Status Start Date End Date Code Code Syst em Smoking History Unknown if ever smoked [address] Sex Female Vital Signs Vital Sign Value Unit [place] Value [place] Unit Date/Time Recent/Initial? Code Code System Body Mass Index 47.83 kg/m2 02/15/2024 08:04 Most Recent 78488 -5 LOINC Body Mass Index 47.83 kg/m2 02/05/2024 14:27 Initial 52500 -5 LOINC Systolic Blood Pressure 139 mm[Hg] [...] O2 Saturation 96 % 2023 08:04 Initial 19686 -5 LOINC Pulse 80.0 /min 02/15/2024 08:04 Initial 8867- 4 LOINC Respiration 20 /min 02/15/20 08:04 Initial 9279- 1 LOINC Temperature 36.4 Dana 97.5 F 02/15/20 08:04 Initial 8310- 5 LOINC Weight 122.47 kg 270.00 lbs 02/15/2024 08:04 Most Recent 04834 -7 LOINC Weight 122.47 kg 270.00 lbs 02/05/2024 14:27 Initial 78721 -7 LOINC Medications Medication Start Date End Date Route Frequency Dose Code Code System Medication Instructions Home Meds Omeprazole 40MG Oral Capsule, Delayed Release 02/15/2024 05/17/2024 ORAL ONCE A DAY 40 MILLIGRAMS [id number] RxNorm TAKE 40 MILLIGRAMS ORAL ONCE A DAY metFORMIN HCl 500MG Oral Tablet 05/17/2024 Unknown ORAL ONCE A DAY 500 MILLIGRAMS 173888 RxNorm TAKE 500 MILLIGRAMS ORAL ONCE A [...] Code Syste m History of tonsillectomy completed 150554701 SNOMEDCT Esophagogastroduodenoscopy, flexible, transoral; with transendoscopic ball 02/15/2024 completed 04020 CPT History of adenoidectomy completed 521386700 SNOMEDCT Anesthesia for upper gastroi ntestinal endoscopic procedures, endoscope int 02/15/2024 completed 24295 CPT Allergies and Adverse Reactions Allergy Substance Reaction Severity Start Date Concern Status Co de Code System No Known Drug Allergies Active [id number] SNOMED-CT Plan of Treatment EGD 05/17/2024 EGD 02/15/2024 Encounters Encounter Diagnosis Start Date Code Code Sys tem Dysphagia, unspecified 02/15/2024 SNOME D-CT Personal Care Team Section Performer Name Performer Role Active Date Inactive Da te
== END 2024-08-06 10:11 | disposition home or self-care (01) ==
PROVIDERS: Emergency Provider Emergency Medicine; PCP Physician Assistant
DX: J10.1 Influenza due to other identified influenza virus with other respiratory manifestations (principal); F17.210 Nicotine dependence, cigarettes, uncomplicated; Z20.822 Contact with and (suspected) exposure to COVID-19
CPT/HCPCS: 87637; 87651; 99283